=== PATIENT | male | born 1975 | race Caucasian/White ===

== ENCOUNTER 2021-06-29 11:40 | Emergency (ER) | payer OTHER ==
[~2021-06-29] VITALS: Ht 188 cm; Wt 128.4 kg
--- NOTE | 2021-06-29 12:05 | NUR ---
Patient to ER bed H1 to gown for evaluation. Side rails up.
[2021-06-29 12:07] VITALS: BP_SYST 126
--- NOTE | 2021-06-29 12:12 | NUR ---
pt arrives from home w/ c/o anxiety for the past 4 months. Pt states that the anxiety has become more severe over the past 4 nights, he has not been able to sleep for the past 4 nights. Pt states that his prescriped him Inderol, w/out any relief and Valium w/ only slight relief.
--- NOTE | 2021-06-29 12:14 | NUR ---
AGUILAR Almanza at bedside examining patient.
[2021-06-29] MEDS ORDERED: clonazePAM 0.5 MG TABLET PO ONE (12:30)
--- NOTE | 2021-06-29 12:31 | NUR ---
medicated w/ Klonipin per MD order.
[2021-06-29] MEDS ORDERED: CLON0.5T4 PO ×2 (12:45→12:48)
[2021-06-29 12:51] VITALS: BP_SYST 126
--- NOTE | 2021-06-29 12:53 | NUR ---
Patient given written and verbal discharge instructions and verbalizes understanding. ER MD discussed with patient the results and treatment provided. Patient in stable condition. ID arm band removed. Rx of Klonopin given. Patient educated on pain management and to follow up with PMD. Pain Scale 0/10. Opportunity for questions provided and answered. Medication side effect fact sheet provided.
== END 2021-06-29 12:53 | disposition home or self-care (01) ==
LOC: SED 11:40
DX: F41.1 Generalized anxiety disorder (principal); G47.00 Insomnia, unspecified; Z79.899 Other long term (current) drug therapy
CPT/HCPCS: 99283

== ENCOUNTER 2021-07-02 12:37 | Emergency (ER) | payer OTHER, SELFPAY ==
[~2021-07-02] VITALS: Ht 188 cm; Wt 127.9 kg
[2021-07-02 12:37] VITALS: BP_SYST 155
[~2021-07-02 12:37] MED LIST: CLON0.5T4 PO
[2021-07-02] MEDS ORDERED: methylPREDNISolone SOD SUCC/PF 62.5 MG/ML VIAL IM ONE (14:00)
[2021-07-02] MEDS ORDERED: PRED20TA PO (14:05)
[2021-07-02] MEDS ORDERED: ALBU8.5H8 INH (14:05)
== END 2021-07-02 14:28 | disposition home or self-care (01) ==
LOC: SED 12:37
DX: J40 Bronchitis, not specified as acute or chronic (principal); F41.9 Anxiety disorder, unspecified; Z79.899 Other long term (current) drug therapy; Z20.822 Contact with and (suspected) exposure to COVID-19
CPT/HCPCS: 71045; 87426; 96372; 99284; J2930; 36415

== ENCOUNTER 2022-08-23 13:04 | Emergency (ER) | payer OTHER ==
[~2022-08-23] VITALS: Ht 185.4 cm; Wt 123.8 kg
[~2022-08-23 13:04] MED LIST changes: +ALBU8.5H8 INH; +PRED20TA PO
--- NOTE | 2022-08-23 13:10 | NUR ---
Pt brought by self, A&Ox4, pt presents to ER with headache and nausea x 4 days, skin pink and warm, cap refill <3, VSS, respirations even and unlabored.
[2022-08-23 13:17] VITALS: BP_SYST 150
--- NOTE | 2022-08-23 16:12 | NUR ---
DR RICK OUT TO TRIAGE FOR EVALUATION
[2022-08-23] MEDS ORDERED: KETOROLAC TROMETHAMINE 60 MG/2 ML VIAL IM ONE (16:30)
[2022-08-23] MEDS ORDERED: FAMOTIDINE 20 MG TABLET PO ONE (18:15)
[2022-08-23] MEDS ORDERED: DIPHENHYDRAMINE INJ 50 MG/ML VIAL IM ONE (18:15)
[2022-08-23] MEDS ORDERED: METOCLOPRAMIDE HCL 10 MG/2 ML VIAL IM ONE (18:15)
[2022-08-23] MEDS ORDERED: ONDANSETRON 4 MG ODT TAB ONE (18:58)
[2022-08-23] MEDS ORDERED: ONDANSETRON 4 MG ODT TAB PO ONE (19:00)
--- NOTE | 2022-08-23 19:35 | NUR ---
Report given to Karis WILDE
[2022-08-23] MEDS ORDERED: IMI50 PO ×3 (19:48→20:07)
[2022-08-23] MEDS ORDERED: MORPHINE 4 MG INJ. 4 MG/ML VIAL IM ONE (20:00)
--- NOTE | 2022-08-23 20:08 | NUR ---
Patient given written and verbal discharge instructions and verbalizes understanding. ER MD discussed with patient the results and treatment provided. Patient in stable condition. ID arm band removed. Rx of IMITREX given. Patient educated on pain management and to follow up with PMD. Pain Scale 2/10. Opportunity for questions provided and answered. Medication side effect fact sheet provided.
[2022-08-23 20:10] VITALS: BP_SYST 142
== END 2022-08-23 20:10 | disposition home or self-care (01) ==
LOC: SED 13:04
DX: G43.909 Migraine, unspecified, not intractable, without status migrainosus (principal); Z79.899 Other long term (current) drug therapy
CPT/HCPCS: 99283; 96372; Q0162; J1885; J2270